=== PATIENT | male | born 1955 | race Caucasian/White ===

== ENCOUNTER → 2020-11-19 09:42 | Outpatient (CLI) | payer BC, SELFPAY ==
--- NOTE | ~2020-11-19 | MR_ITS ---
EXAMINATION: MR IAC wo/w con EXAM DATE: 11/19/2020 11:01 INDICATION: H91.92 - Unspecified hearing loss, left ear left ear hearing loss. TECHNIQUE: Multi-sequential, multiplanar MR images of the brain, brainstem, internal auditory canals were obtained without contrast. Whole brain sagittal T1, axial diffusion, gradient echo (T2*), T1, T 2, FLAIR sequences obtained. High resolution coronal 3-D FIESTA, coronal T1 FSE, axial T1 FSPGR of t he internal auditory canals. Patient was then injected with 17 cc Multihance contrast intravenously. Postcontrast axial and coronal T1 weighted whole brain, axial and coronal high resolution T1 IAC seq uences obtained. There is no prior study for comparison. FINDINGS: No evidence of mastoid or middle ear opacification. The 7th/8th cranial nerve complexes a re symmetric, normal in course and caliber. No cerebellopontine angle masses. Posterior fossa unrem arkable. There are no areas of restricted diffusion to suggest acute infarction. There is no acute hemorrhage seen on the T2*, a hemosiderin sensitive sequence. No intraparenchymal brain mass lesion. There is mild periventricular and subcortical T2/FLAIR signal hyperintensity, nonspecific but probably related to small vessel ischemic disease (microangiopathy). There are no extra-axial collections. Flow v oids are seen in the cerebral arteries on the T2-weighted sequences consistent with their expected pa tency. The orbits are unremarkable. Soft tissue is unremarkable. IMPRESSION: 1. No acute intracranial findings. 2. Mild microangiopathy Reviewed, dictated and finalized at location B.
[2020-11-19 10:16] LABS: Estimated Glomerular Filt Rate > 60
== END ==
PROVIDERS: Visit Provider Otolaryngology
DX: H91.92 Unspecified hearing loss, left ear (principal); I73.9 Peripheral vascular disease, unspecified
CPT/HCPCS: 70553; A9577